=== PATIENT | female | born 1975 | race Caucasian/White ===

== ENCOUNTER 2025-05-30 07:51 | Day surgery (SDC) | payer MEDICAID ==
--- NOTE | 2025-05-26 09:49 | ELECTROCARDIOGRAPH REPORT ---
[facility] Test Date: 2025-05-26 Test Time: 09:44:37 Pat Name: ITZ CONNORS Department: [facility]-PRE-OP Patient ID: [id number] Room: Gender: F [employer]: : 1975 Requested By: MAXI THOMPSON Order Number: [id number] Reading MD: Dr. LAVONNE Regalado Measurements Intervals [place] Rate: 91 P: 72 TN: 134 QRS: 90 QRSD: 85 T: 21 QT: 332 QTc: 409 Interpretive Statements Sinus rhythm Borderline right axis deviation Electronically Signed On 05-27-2025 14:00:[address] LAVONNE Regalado Please click the below link to view image of tracing.
[2025-05-26 10:07] LABS: LEUKOCYTE ESTERASE ,URINE NEGATIVE (Neg); NITRITES, URINE NEGATIVE (Neg); OCCULT BLOOD,URINE NEGATIVE (Neg)
[2025-05-26 10:10] LABS: MEAN PLATELET VOLUME 6.3 FL (7.4-10.4); PRE OP HEMATOCRIT 28.8 % (35.0-45.0); PRE OP PLATELET COUNT 837 X10'3 (140-440); PRE OP WHITE BLOOD COUNT 12.7 10'3 (4.8-10.8); RED CELL DISTRIBUTION WIDTH 19.6 % (11.5-14.5)
[2025-05-26 10:12] LABS: PRE OP HEMOGLOBIN 9.0 g/dL (12.0-16.0)
[2025-05-26 10:13] LABS: UA COLLECTION TYPE CLN CATCH MIDSTREAM
[2025-05-26 10:20] LABS: PRE OP INR 1.1 INR; PRE OP PARTIAL THROMB. TIME 30.0 SECONDS (22-32); PRE OP PROTIME 10.9 SECONDS (9.0-12.0)
[2025-05-26 10:24] LABS: CREATININE 0.68 MG/DL (0.40-0.90); PRE OP ALT 16 U/L (30-65); PRE OP ANION GAP 7 (8-16); PRE OP AST 9 U/L (10-37); PRE OP BILIRUB, TOTAL 0.2 MG/DL (0.0-1.0); PRE OP GLUCOSE 97 MG/DL (70-104); PRE OP POTASSIUM 3.9 MMOL/L (3.4-5.1); PRE OP SODIUM 137 MMOL/L (135-145); TOTAL CARBON DIOXIDE 27.7 MMOL/L (24-32); eGFR > 90 ML/MIN
[2025-05-26 10:31] LABS: LARGE PLATELETS FEW; PLATELET ESTIMATE INCREASED
[2025-05-26 10:32] LABS: ELLIPTOCYTES FEW
[2025-05-26 10:54] LABS: HCG SERUM QL NEGATIVE
--- NOTE | 2025-05-26 11:17 | RADIOLOGY REPORT ---
DI CHEST,TWO VIEWS CLINICAL HISTORY: PREOP COMPARISON: None TECHNIQUE: Frontal and lateral view of the chest was obtained FINDINGS: Lines and Tubes: None Lungs: Right lower lobe lung mass Pleura: No effusion. No pneumothorax. Cardiomediastinal contours: Unremarkable Bones: No acute osseous abnormality. IMPRESSION: Right lower lobe lung mass . CT suggested.
[~2025-05-30] VITALS: Ht 162.6 cm; Wt 55.0 kg
[2025-05-30] VITALS (12 sets, daily range): BP systolic 107–121; BP diastolic 65–76; PULSE 62–85; RESP 14–17; TEMP 98.1; O2SAT 95–100
[2025-05-30] MEDS: ceFAZolin 2gm/dext,iso 50mL 50 ML IV ONE (05:30)
[~2025-05-30 07:51] MED LIST: LIQUID IRON PO; ceFAZolin 2gm/dext,iso 50mL 50 ML IV ONE
[2025-05-30] MEDS ORDERED: morphine 4 MG/ML inj SYRINge IV PRN (09:10)
[2025-05-30] MEDS ORDERED: labetalol 20mg/4ml (5mg/ml) syringe IV PRN (09:10)
[2025-05-30] MEDS: ringers solution, lacted 1,000 ML IV SCH (09:10)
[2025-05-30] MEDS ORDERED: ondansetron/PF 4mg/2ml inj IV PRN (09:10)
[2025-05-30] MEDS ORDERED: hydrALAZINE 20mg/ml inj. IV PRN (09:10)
[2025-05-30] MEDS ORDERED: fentaNYL/PF 50MCG/1 ML 2ML syringe IV PRN (09:10)
[2025-05-30] MEDS ORDERED: ringers solution, lacted 1,000 ML IV SCH (09:10)
[2025-05-30] MEDS ORDERED: iohexol 300mg/ml 100ml inj. ONE (09:29)
[2025-05-30] MEDS ORDERED: BUPIVAcaine 2.5mg/ml inj 50ml vial (contains preservative) ONE (09:36)
[2025-05-30] MEDS ORDERED: propofol inj 20 ML IV ONE (09:47)
[2025-05-30] MEDS ORDERED: LIDOcaine 2% (20mg/ml) 5ml vial ONE (09:47)
[2025-05-30] MEDS ORDERED: acetaminophen 1000 MG/100ml vial IV ONE (10:42)
[2025-05-30] MEDS ORDERED: midazolam 1 mg/ML 2ml injection ONE (10:42)
[2025-05-30] MEDS ORDERED: ondansetron/PF 4mg/2ml inj ONE (10:43)
--- NOTE | 2025-05-30 10:50 | RADIOLOGY REPORT ---
Procedure: CT CT CHEST W/ IV CONTRAST 05/30/2025 09:58 AM History: LYMPHNODE BIOPSY Comparison: None Technique: After the uneventful administration of contrast intravenously, CT imaging was performed th rough the chest. Coronal and sagittal reformations were performed by the technologist. 3D image postprocessing was performed on a dedicated workstation and images were used for interpretat ion and reporting. Radiation Dose : CT Dose: CTDI volume is 7.1 mGy. Dose-length product is 243.7 mGy*cm Findings: Lower neck: Normal thyroid. Lungs: Right middle lobe masslike consolidation. Multiple nodules in the right upper lobe measuring u p to 1.1 cm. Heart/Vascular Structures: Cardiomegaly. Right middle lobe mass may be invading the right anterior h eart. Moderate pericardial effusion. Lymph Nodes: Right supraclavicular lymph nodes are present measuring up to 1.1 cm. Numerous prominent left axillary lymph nodes are present measuring up to 1.5 cm. Precarinal lymph node measures 1.6 cm. Pleura: Small right pleural effusion. Musculoskeletal: No acute osseous abnormality. Soft tissues: Normal. Upper abdomen: Indeterminate 1.7 cm hyperattenuating lesion in the posterior right hepatic dome. IMPRESSION: Right middle lobe mass possibly invading or abutting the right anterior heart. Right middle lobe masslike atelectasis/consolidation. Multiple right upper lobe pulmonary nodules measuring up to 1.1 cm possibly representing satellite ne oplastic lesions. Moderate right pleural effusion. Mediastinal, right supraclavicular and left axillary adenopathy. Small right pleural effusion. Indeterminate right hepatic lobe lesion measures 1.7 cm.
[2025-05-30] MEDS ORDERED: fentaNYL/PF 50MCG/1 ML 2ML syringe ONE ×2 (11:02→11:14)
--- NOTE | 2025-05-30 11:08 | RADIOLOGY REPORT ---
CLINICAL INFORMATION: Lymph node biopsy. No other clinical information provided. TECHNIQUE: Axial CT images of the neck soft tissues were obtained after the uneventful administration of 100 mL Omnipaque 300 IV contrast. Coronal and sagittal reformatted images were obtained, stored, and reviewed. One or more of the following dose reduction techniques were used: Automated exposure co ntrol. Adjustment of mA and/or kV according to patient size. CTDIvol = 14.32 mGy DLP = 401.73 mGy-cm COMPARISON: None FINDINGS: Nasopharynx: Torus tubarius and fossa of Rosenmuller are unremarkable. No mass or fluid collection. U nremarkable adenoid tonsils. Oropharynx: No evidence of mass or abscess. Unremarkable palatine tonsils and lingual tonsils. Hypopharynx/Larynx: Unremarkable. No mass or fluid collection. Paranasal sinuses: Clear. Lymph nodes: Multiple enlarged, bulky left supraclavicular lymph nodes, with the largest measuring up to 2.7 x 2.8 cm and 2.0 x 1.8 cm, respectively. Smaller right supraclavicular lymph nodes, with the largest measuring up to 1.7 x 1.0 cm. Mildly prominent right level 2 cervical lymph nodes measuring u p to 1.0 x 0.8 cm with additional small subcentimeter cervical lymph nodes visualized. No enlarged quezada bmandibular lymph nodes. Neck glands: Thyroid gland is heterogeneous with multiple nodules, with the largest nodule measuring up to 2.2 cm in greatest dimension. Submandibular glands and parotid glands appear unremarkable. Vasculature: Unremarkable. Bones: Unremarkable. Visualized superior mediastinum: Refer to the separately dictated same day CT chest report for findin gs in the chest. Lung apices: Refer to the separately dictated same day CT chest report. Other findings: None. IMPRESSION: 1. Bulky supraclavicular lymphadenopathy, left greater than right, suspicious for malignancy, includi ng dino metastatic disease. 2. Smaller level 2 cervical lymph nodes, may be reactive. 3. Heterogeneous thyroid gland with multiple nodules. Malignancy not excluded. Thyroid ultrasound rec ommended for further characterization based on the size of the nodules per ACR white paper on inciden tally detected thyroid nodules. 4. Additional findings as described above. 5. See the separately reported, same day CT chest exam for findings in the chest.
[2025-05-30] MEDS: BUPIVAcaine/PF 2.5 mg/ml (0.25%) 30ml vial IJ ONE (11:59)
[2025-05-30] MEDS: fentaNYL/PF 50MCG/1 ML 2ML syringe IV PRN (12:49)
--- NOTE | 2025-05-30 17:14 | OPERATIVE REPORT ---
DATE OF SURGERY: 05/30/2025 DICTATING PHYSICIAN: Trent Cuevas MD PREOPERATIVE DIAGNOSES: Multiple neck masses. POSTOPERATIVE DIAGNOSES: Multiple neck masses. PROCEDURE: Excisional biopsy of multiple neck masses. SURGEON: Trent Cuevas MD COIN COLLECTOR: None. ANESTHESIA: General/Dr. Dickinson. DRAINS: None. INDICATIONS FOR OPERATION: The patient is a 49-year-old female with multiple neck masses as well as ____ mass, taken to the surgery for excisional biopsy. INTRAOPERATIVE FINDINGS: Multiple neck masses. DESCRIPTION OF PROCEDURE: The patient was placed supine on the operating table. After induction of general anesthesia and placement of endotracheal tube, the neck was prepped and draped. Incision was made over the palpable masses in the left supraclavicular region. This was identified and incised. Multiple neck masses were then identified, mobilized and removed. Tissue was then sent for cultures involving ASV, fungal, viral, aerobic and anaerobic as well as ____ protocol, permanent studies, and a frozen section. Hemostasis was found to be adequate. Wounds were closed with layers. Skin was closed with subcuticular stitch. Dressing applied and the patient was transferred to recovery in stable condition after reversing from general anesthesia. Trent Cuevas MD TID: [id number] RECEIPT: [id number] GUY/VUN/AMA cc: Shane Quintanilla MD, David Kruse MD
--- NOTE | 2025-06-01 10:17 | PATHOLOGY REPORT ---
[facility] [address] [place] [address] SURGICAL PATHOLOGY REPORT CaseNumber: [id number] Surgeon:Trent Cuevas M.D. CLINICAL INFORMATION CLINICAL INFORMATION: Left neck mass. Neoplasm of unspecified behavior of bone, soft tissue, and ski n. (D49.2) DIAGNOSIS DIAGNOSIS: A.LYMPH NODE, LEFT SUPRACLAVICULAR, SURGICAL EXCIS - CLASSIC HODGKIN LYMPHOMA (NODULAR SCLEROSING TYPE) DIAGNOSIS: B.LYMPH NODE, LEFT SUPRACLAVICULAR, SURGICAL EXCIS - CLASSIC HODGKIN LYMPHOMA (NODULAR SCLEROSING TYPE) - DIAGNOSIS SUPPORTED BY IMMUNOHISTOCHEMISTRY MICROSCOPIC DESCRIPTION A. LYMPH NODE, LEFT SUPRACLAVICULAR, SURGICAL EXCIS MICROSCOPIC DESCRIPTION: Reviewed are two H&E-stained slides, and the associated frozen section slide , showing sections of the lymph node tissue that are extensively sclerotic, by thick bands of fibroco llagenous tissue. The islands of lymph node tissue are associated with numerous Ghcq-Mdfnwojen-dyoy cells. Increased numbers of eosinophils are also noted. B. LYMPH NODE, LEFT SUPRACLAVICULAR, SURGICAL EXCIS MICROSCOPIC DESCRIPTION: Reviewed is a single H&E-stained slide showing sections of the lymph node ti ssue that are extensively sclerotic, by thick bands of fibrocollagenous tissue. The islands of lymph node tissue are associated with numerous Tuod-Xddcmdjas-elqk cells. Increased numbers of eosinophil s are also noted. Immunohistochemistry is as follows: CD3 .... RS-cells negative; T-cells positive CD20 .... RS-cells negative; B-cells positive CD15 .... RS-cells and granulocytic cells positive CD30 .... RS-cells positive CD45 .... RS-cells negative; small lymphocytes positive PAX-5 .... RS-cells dimly positive; small B-cells positive GROSS DESCRIPTION A. LYMPH NODE, LEFT SUPRACLAVICULAR, SURGICAL EXCIS GROSS DESCRIPTION: Received unfixed in the operating room labeled with the patient's name, number, an d "left supraclavicular mass" is a 3 cm aggregate of irregularly shaped pieces of bro-salinas tissue. Th e specimen is examined at the time of surgery and a portion of the tissue is submitted for frozen sec tion. A portion of the tissue is submitted for flow cytometry. INTRAOPERATIVE CONSULTATION WITH FRO BRIA SECTION DIAGNOSIS BY Dr. Whitehead at 1227: "Atypical lymph node, favor Hodgkin's lymphoma"(Diag nosis reported to Dr. Cuevas) (Performed at [facility] [address] [facility] [address]) A1) RepresentativeA2) Frozen section remnant B. LYMPH NODE, LEFT SUPRACLAVICULAR, SURGICAL EXCIS GROSS DESCRIPTION: Received in a container of formalin labeled with the patient's name, number, and " left supraclavicular mass" is a 1.5 cm aggregate of irregularly shaped bro-white tissue. The specim en is entirely submitted as B1. Electronically signed by: James Pascual M.D. 06/01/2025 9:40:00 AM
== END 2025-05-30 13:39 | disposition home or self-care (01) ==
LOC: PAS 07:51
PROVIDERS: ATTEND Surgery
DX: R22.1 Localized swelling, mass and lump, neck (principal); C81.11 Nodular sclerosis Hodgkin lymphoma, lymph nodes of head, face, and neck; Z98.890 Other specified postprocedural states; Z79.01 Long term (current) use of anticoagulants; Z79.899 Other long term (current) drug therapy; J90 Pleural effusion, not elsewhere classified
CPT/HCPCS: 36415; 38500; 71046; 80053; 81003; 82948; 84703; 85025; 85610; 85730; 86885; 86900; 86901; 87015; 87070; 87075; 87102; 87116; 87206; 93005; J0131; J1100; J2003; J2250; J2405; J2704; J3010; J3490; J7030; J7120; Q9967; Z7506; Z7508; Z7512; 85008; A4618; A6258; A7000